=== PATIENT | male | born 1940 | race Caucasian/White ===

== ENCOUNTER 2020-02-02 11:00 | Outpatient (CLI) | payer OTHER | END 2020-02-02 15:00 | disposition home or self-care (01) | LOC: LAB 11:00 | PROVIDERS: ATTEND Urology | DX: R97.20 Elevated prostate specific antigen [PSA] (principal) ==

== ENCOUNTER 2020-02-20 07:13 | Outpatient (CLI) | payer OTHER | END 2020-02-20 07:20 | disposition home or self-care (01) | LOC: SONOGRAMA 07:13 | PROVIDERS: ATTEND Urology | DX: R97.20 Elevated prostate specific antigen [PSA] (principal) ==

== ENCOUNTER 2020-03-12 09:00 | Outpatient (CLI) | payer OTHER | END 2020-03-12 09:09 | disposition home or self-care (01) | LOC: TOM 09:00 | PROVIDERS: ATTEND Urology | DX: R97.20 Elevated prostate specific antigen [PSA] (principal); R36.1 Hematospermia; C61 Malignant neoplasm of prostate ==

== ENCOUNTER 2020-03-26 09:05 | Outpatient (CLI) | payer OTHER | END 2020-03-26 09:16 | disposition home or self-care (01) | LOC: TOM 09:05 | PROVIDERS: ATTEND Urology | DX: J98.4 Other disorders of lung (principal); C61 Malignant neoplasm of prostate ==

== ENCOUNTER 2020-03-31 08:57 | Outpatient (CLI) | payer OTHER | END 2020-03-31 09:12 | disposition home or self-care (01) | LOC: NUCLEAR 08:57 | PROVIDERS: ATTEND Urology | DX: C61 Malignant neoplasm of prostate (principal) | CPT/HCPCS: 78803; A9503 ==

== ENCOUNTER 2021-02-17 08:00 | Outpatient (CLI) | payer OTHER | END 2021-02-17 08:30 | disposition home or self-care (01) | LOC: PPH VACUNA 08:00 | DX: Z23 Encounter for immunization (principal) ==

== ENCOUNTER 2021-08-20 19:06 | Emergency (ER) | payer OTHER ==
[~2021-08-20] VITALS: Ht 162.6 cm; Wt 76.2 kg
[2021-08-20] MEDS ORDERED: SERTRALINE HCL25 MG (19:23)
[2021-08-20] MEDS ORDERED: FINASTERIDE5 MG (19:23)
[2021-08-20] MEDS ORDERED: TAMSULOSIN HCL0.4 MG (19:23)
[2021-08-20] MEDS ORDERED: ALPRAZOLAM0.5 MG (19:23)
[2021-08-20] MEDS ORDERED: LOSARTAN-HCTZ1 EAC2 (19:23)
[2021-08-20] MEDS ORDERED: SIMVASTATIN20 MG (19:23)
== END 2021-08-21 02:36 | disposition home or self-care (01) ==
LOC: ER 19:06
DX: R00.2 Palpitations (principal); I10 Essential (primary) hypertension; Z20.822 Contact with and (suspected) exposure to COVID-19

== ENCOUNTER 2021-10-13 08:00 | Outpatient (CLI) | payer OTHER ==
[~2021-10-13 08:00] MED LIST: ALPRAZOLAM0.5 MG; FINASTERIDE5 MG; LOSARTAN-HCTZ1 EAC2; SERTRALINE HCL25 MG; SIMVASTATIN20 MG; TAMSULOSIN HCL0.4 MG
== END 2021-10-13 08:30 | disposition home or self-care (01) ==
LOC: PPH VACUNA 08:00
PROVIDERS: ATTEND Emergency Medicine Pediatric Emergency Medicine
DX: Z23 Encounter for immunization (principal)

== ENCOUNTER 2024-07-26 14:11 | Emergency (ER) | payer OTHER ==
[~2024-07-26] VITALS: Ht 162.6 cm; Wt 78.0 kg
[2024-07-26] MEDS ORDERED: AZELASTINE137 MCG/0. NASAL (14:31)
[2024-07-26] MEDS ORDERED: ACETAMINOPHEN 500 MG GEL..CAP PO ONE (14:37)
[2024-07-26] MEDS ORDERED: GUAIFENESIN/DEXTROMETHORPHAN 10ML BLIST.PACK PO ONE (16:45)
[2024-07-26] MEDS ORDERED: CETIRIZINE HCL 5 MG/5 ML ML PO ONE (16:45)
[2024-07-26] MEDS ORDERED: CETIRIZINE HCL 5MG/5ML BLIST.PACK PO ONE (16:55)
[2024-07-26] MEDS ORDERED: GUAIFEN/DEXTROMETHORPHAN/PE 10 ML BLIST.PACK PO ONE (16:55)
[2024-07-26 18:01] LABS: HEMATOCRIT 40.7 % (39.0-48.0); HEMOGLOBIN 13.8 g/dL (13-16.00); MEAN CORPUSCULAR HEMOGLOBIN 33.5 pg (27.00-32.0); MEAN CORPUSCULAR HGB CONC 33.8 g/dl (32.0-36.0); PLATELET COUNT 178 K/uL (150-450); RED BLOOD COUNT 4.12 M/uL (4.00-6.00); RED CELL DISTRIBUTION WIDTH 14.3 % (11.5-14.5)
[2024-07-26] MEDS ORDERED: PAXLOVID 300-11 EAC1 PO (19:26)
[2024-07-26] MEDS ORDERED: QC TUSSIN DM L118 ML PO (19:26)
== END 2024-07-26 22:21 ==
LOC: ER 14:14
PROVIDERS: Preventive Medicine Public Health & General Preventive Medicine
DX: U07.1 COVID-19 (principal); Z88.8 Allergy status to other drugs, medicaments and biological substances; Z91.018 Allergy to other foods; Z85.46 Personal history of malignant neoplasm of prostate; I10 Essential (primary) hypertension